=== PATIENT | male | born 1965 | race Caucasian/White ===

== ENCOUNTER 2017-01-04 09:00 | Emergency (ER) | payer BC, OTHER ==
[2017-01-04 09:55] VITALS: BP 141/94
--- NOTE | 2017-01-04 10:02 | UC ---
David Brink Matthew, scribed for Al Murphy MD on 01/04/17 at 0941 . Palpitation/Dysrhythmia HP - HPI Summary HPI Summary: A 51 y/o male presents to the ED with intermittent palpitations since 12/28. He has Hx of palpitations and wore a holter monitor at that time. However, the patient states that the "tech reviewed the results and told him that no further- work up was necessary.: The palpitations subsided until they started up again on 12/28. The symptoms worsen at night when the patient lies down and are unaffected by exertion. Hes having difficulty sleeping from the palpitations. He denies chest pain, SOB, dizziness, nausea, vomiting, and diaphoresis. The patient has 1 to 1.5 cups of coffee per day. He does not drink soda or power drinks. He does not smoke, but does drink alcohol. PMHx includes HTN. FHx of CAD and his mother had a MT at 59. - History of Current Complaint Chief Complaint: UCCardiac Stated Complaint: HEART BEATING FAST Time Seen by Provider: 01/04/17 09:01 Hx Obtained From: Patient Onset/Duration: Lasting Weeks, Still Present Timing: Intermittent Episodes Lasting: Severity Initially: Mild Severity Currently: None Aggravating Factor(s): Position - lying flat Associated Signs & Symptoms: Negative: Dizzy, Chest Pain, Shortness of Breath, Diaphoresis, Nausea, Vomiting - Allergy/Home Medications Allergies/Adverse Reactions: Allergies Allergy/AdvReac Type Severity Reaction Status Date / Time No Known Allergies Allergy Verified 02/03/16 09:39 PMH/Surg Hx/FS Hx/Imm Hx Endocrine History Of: Denies: Diabetes, Thyroid Disease Cardiovascular History Of: Reports: Hypertension - WELL CONTROLLED Denies: Cardiac Disorders Respiratory History Of: Denies: COPD, Asthma GI/ History Of: Denies: Ulcer - Surgical History Surgical History: Yes Surgery Procedure, Year, and Place: L KNEE ACL X 1. L KNEE MENISCUS X 4 - Family History Known Family History: Positive: Cardiac Disease - mother had an MT at 59 - Social History Alcohol Use: Daily Alcohol Amount: 3-4 beer Substance Use Type: None Smoking Status (MU): Current Some Day Smoker Type: Cigars Amount Used/How Often: OCC CIGAR - Immunization History Most Recent Influenza Vaccination: 2016/2016 Review of Systems Constitutional: Negative Skin: Negative Eyes: Negative ENT: Negative Respiratory: Negative Cardiovascular: Palpitations - described as an extra beat Gastrointestinal: Negative Genitourinary: Negative Motor: Negative Neurovascular: Negative Musculoskeletal: Negative Neurological: Negative Psychological: Negative All Other Systems Reviewed And Are Negative: Yes Physical Exam Triage Information Reviewed: Yes Vital Signs: Initial Vital Signs Temp 98.9 F 01/04/17 09:07 Pulse 82 01/04/17 09:07 Resp 16 01/04/17 09:07 BP 147/97 01/04/17 09:07 Pulse Ox 97 01/04/17 09:07 Vital Signs Reviewed: Yes - Additional Comments VITAL SIGNS: Reviewed. GENERAL: Patient is a well developed and nourished male who is lying comfortable in the stretcher. Patient is not in any acute respiratory distress. HEAD AND FACE: Normocephalic EYES: PERRLA, EOMI x 2. EARS: Hearing grossly intact. MOUTH: Oropharynx within normal limits. NECK: Supple, trachea is midline, no adenopathy, no JVD, no carotid bruit. CHEST: Symmetric, no tenderness at palpation LUNGS: Clear to auscultation bilaterally. No wheezing or crackles. CVS: Regular rate and rhythm, S1 and S2 present, no murmurs or gallops appreciated. ABDOMEN: Soft, non-tender. Bowel sounds are normal. No abdominal abnormal pulsations. EXTREMITIES: FROM in all major joints, no edema, no cyanosis or clubbing. NEURO: Alert and oriented x 3. No acute neurological deficits. Speech is normal and follows commands. SKIN: Dry and warm Diagnostics - EKG Cardiac Rate: NL - 81 bpm Cardiac Rhythm: Sinus: Normal - No ST elevation, no PVC, and similar to previous EKG done on 01/28/16 Palpitations Course/Dx - Course Course Of Treatment: EKG shows NSR without ST elevations expect for occasional PVCs. The patient denies chest pain, SOB, diaphoresis, or feeling like he is going to pass out. At this time, the patient is asymptomatic. He reports that in the past he has had these palpitations and had a Holter monitor at that time. However, he does not really know the result since he did not follow-up with his PCP. He denies any increased caffeine intake from usual, drug use, or power drinks. I believe that the patients symptoms are secondary to his PVCs and since the patient does not have any other complaint he will be discharged home with follow-up from PCP for possible Holter monitor and further work-up bean management. He will be referred to a PCP as he does not have one currently. He was recommended to go to the ED if he develops more palpitations, chest pain , SOB, dizziness, or near syncopal episode. He understands and agrees. He verbalized understanding. He is hemodynamically stable and A&Ox3. I discussed all the findings and test results with the patient. Patient was instructed to return to the emergency room immediately if any of the symptoms return or worsens. Plan of care was discussed with the patient and understands and agrees. All questions were answered at patient satisfaction. There were no further complaints or concerns. Lung exam before discharge: CTA B/L. Good air exchange. No wheezing or crackles heard. CVS: S1 and S2 present. No murmurs appreciated. Patient is alert and oriented x 3. Patient is hemodynamically stable. Patient will be discharged home with follow up senior administrative services officer in the next 2-3 days - Differential Dx/Diagnosis Differential Diagnosis/HQI/PQRI: Other - Arrythmia, palpitations, Provider Diagnoses: PVCs Discharge - Discharge Plan Condition: Stable Disposition: HOME Patient Education Materials: Premature Ventricular Contractions (ED) Referrals: [facility] [place] [facility] [place] [facility] [Outside] - 3 Days Additional Instructions: Please call the physician finder to make an appointment with a primary care physician. Please go to the ED if you developed more or worsening palpitations, chest pain, SOB, dizziness, or a sensation of passing out. Diagnostics - Vital Signs Vital Signs Temp Pulse Resp BP Pulse Ox 01/04/17 09:07 98.9 F 82 16 147/97 97 - Laboratory Lab Statement: Any lab studies that have been ordered have been reviewed, and results considered in the medical decision making process. - EKG 09:11 Cardiac Rate: NL - 81 bpm EKG Rhythm: Sinus Rhythm EKG Interpretation: No ST elevation, no PVC, and similar to previous EKG done on 01/28/16 EKG Comparison: No Significant Change - 01/28/16 which showed showed sinus rhythm at 76 bpm with Q waves in II, III, aVF 09:13 Cardiac Rate: NL - 81 bpm EKG Rhythm: Sinus Rhythm Ectopy: PVCs EKG Interpretation: No ST elevations EKG Comparison: No Significant Change - Previous EKG done in the at 09:10 The documentation as recorded by the David dukes Matthew accurately reflects the service I personally performed and the decisions made by me, Al Murphy MD.
== END 2017-01-04 10:00 | disposition home or self-care (01) ==
LOC: UCEAST 09:00
DX: I49.3 Ventricular premature depolarization (principal); I10 Essential (primary) hypertension; Z72.0 Tobacco use
CPT/HCPCS: 93005; 99211; G0463

== ENCOUNTER 2017-01-06 15:41 | Emergency (ER) | payer BC ==
[2017-01-06 15:50] VITALS: BP 140/95
--- NOTE | 2017-01-06 16:01 | UC ---
Palpitation/Dysrhythmia HP - History of Current Complaint Chief Complaint: UCGeneralIllness Stated Complaint: PERSONAL Time Seen by Provider: 01/06/17 15:52 Hx Obtained From: Patient Onset/Duration: Gradual Onset, Lasting Weeks - 1 Severity Initially: Mild Severity Currently: None Character: Irregular, Pounding Aggravating Factor(s): Position - lying down to go to bed. Alleviating Factor(s): Nothing Associated Signs & Symptoms: Positive: Chest Pain - left sided chest pain off and on. No chest pain now. - Risk Factors Cardiac: Hypertension Pulmonary Embolism: Negative Atrial Fibrillation: Hypertension - Allergy/Home Medications Allergies/Adverse Reactions: Allergies Allergy/AdvReac Type Severity Reaction Status Date / Time No Known Allergies Allergy Verified 01/06/17 15:50 PMH/Surg Hx/FS Hx/Imm Hx Endocrine History Of: Denies: Diabetes, Thyroid Disease Cardiovascular History Of: Reports: Hypertension - WELL CONTROLLED Denies: Cardiac Disorders Respiratory History Of: Denies: COPD, Asthma GI/ History Of: Denies: Ulcer - Surgical History Surgical History: Yes Surgery Procedure, Year, and Place: L KNEE ACL X 1. L KNEE MENISCUS X 4 - Family History Known Family History: Positive: Cardiac Disease - mother had an NH at 59, Hypertension Negative: Diabetes - Social History Occupation: Employed Full-time Lives: With Family Alcohol Use: Daily Alcohol Amount: 3-4 beer Substance Use Type: None Smoking Status (MU): Current Some Day Smoker Type: Cigars Amount Used/How Often: OCC CIGAR - Immunization History Most Recent Influenza Vaccination: 2015/2016 Review of Systems ENT: Nasal Discharge - resolving cold Respiratory: Cough Cardiovascular: Palpitations All Other Systems Reviewed And Are Negative: Yes Physical Exam Triage Information Reviewed: Yes Appearance: Well-Appearing, No Pain Distress, Well-Nourished Vital Signs: Initial Vital Signs Temp 99.3 F 01/06/17 15:47 Pulse 89 01/06/17 15:47 Resp 14 01/06/17 15:47 BP 140/95 01/06/17 15:47 Pulse Ox 95 01/06/17 15:47 Vital Signs Reviewed: Yes Eyes: Positive: Conjunctiva Inflamed - Mild bilateral ENT: Positive: Pharynx normal, TMs normal Neck exam: Normal Respiratory Exam: Normal Cardiovascular: Positive: RRR, No Murmur Musculoskeletal Exam: Normal Neurological Exam: Normal Psychological Exam: Normal Skin Exam: Normal Palpitations Course/Dx - Differential Dx/Diagnosis Differential Diagnosis/HQI/PQRI: Hypokalemia, Medication Induced, Paroxymal SVT Provider Diagnoses: Palpitations. Discharge - Discharge Plan Condition: Stable Disposition: HOME Patient Education Materials: Palpitations (ED) Additional Instructions: Make sure to stay well hydrated. Beer will dehydrate you. Exercise can be helpful Consider Melatonin to help with shift sleep disorder.
[2017-01-07 12:32] LABS: Hematocrit 49 % (42-52); Hemoglobin 16.6 g/dl (14.0-18.0); Mean Corpuscular HGB Conc 34 g/dl (31-36); Mean Corpuscular Hemoglobin 31 pg (27-31); Mean Corpuscular Volume 93 fL (80-94); Mean Platelet Volume 9 um3 (7.4-10.4); Red Blood Count 5.31 10^6/ul (4.0-5.4); Red Cell Distribution Width 13 % (10.5-15)
[2017-01-07 12:44] LABS: Albumin 4.3 g/dL (3.2-5.2); BUN/Creatinine Ratio 16.7 (8-20); Calcium 9.4 mg/dL (8.6-10.3); EGFR Non-African American 56.7 (>60); Globulin 2.7 g/dL (2-4); Potassium 3.6 mmol/L (3.5-5.0); Total Bilirubin 0.8 mg/dL (0.2-1.0)
[2017-01-07 12:53] LABS: TSH (Thyroid Stimulating Horm) 3.53 mcIU/mL (0.34-5.60)
== END 2017-01-06 16:52 | disposition home or self-care (01) ==
LOC: UCCORT 15:41
DX: R00.2 Palpitations (principal); I10 Essential (primary) hypertension; Z72.0 Tobacco use
CPT/HCPCS: 36415; 80053; 84443; 85025; 99211; G0463

== ENCOUNTER 2017-09-24 16:09 | Emergency (ER) | payer BC ==
[2017-09-24 16:24] VITALS: BP 127/80
--- NOTE | 2017-09-24 16:38 | UC ---
Abdominal Pain Male HPI - HPI Summary HPI Summary: pain in right flank that radiates around to abdomen has a stent in his ureter- he states he has an abnormal kidney/ureter - History of Current Complaint Chief Complaint: UCAbdominalPain Stated Complaint: STOMACH PAIN Time Seen by Provider: 09/24/17 16:19 Hx Obtained From: Patient Hx From Patient Unobtainable Due To: Dementia Onset/Duration: Sudden Onset, Lasting Days - 2, Still Present Timing: Constant Severity Initially: Mild Severity Currently: Mild Location: Other - right flank mid abdomen Radiates: Yes Character: Unable to describe Aggravating Factor(s): Nothing Alleviating Factor(s): Spontaneous Resolution Associated Signs And Symptoms: Positive: Negative - Allergies/Home Medications Allergies/Adverse Reactions: Allergies Allergy/AdvReac Type Severity Reaction Status Date / Time No Known Allergies Allergy Verified 09/24/17 16:24 PMH/Surg Hx/FS Hx/Imm Hx Previously Healthy: No Cardiovascular History: Hypertension GI/ History: Gastroesophageal Reflux - Surgical History Surgical History: Yes Surgery Procedure, Year, and Place: L KNEE ACL X 1. L KNEE MENISCUS X 4 - Family History Known Family History: Positive: Cardiac Disease - mother had an [place] at 59, Hypertension Negative: Diabetes - Social History Occupation: Employed Full-time Lives: With Family Alcohol Use: Weekly Alcohol Amount: 3-4 beer a week Substance Use Type: None Smoking Status (MU): Current Some Day Smoker Type: Cigars Amount Used/How Often: OCC CIGAR - Immunization History Most Recent Influenza Vaccination: unsure Review of Systems Constitutional: Negative Skin: Negative Eyes: Negative ENT: Negative Respiratory: Negative Cardiovascular: Negative Gastrointestinal: Abdominal Pain Genitourinary: Hematuria Motor: Negative Neurovascular: Negative Musculoskeletal: Negative Neurological: Negative Psychological: Negative Is Patient Immunocompromised?: No All Other Systems Reviewed And Are Negative: Yes Physical Exam Triage Information Reviewed: Yes Appearance: Well-Appearing, No Pain Distress, Well-Nourished Vital Signs: Initial Vital Signs Temp 98.7 F 09/24/17 16:19 Pulse 95 09/24/17 16:19 Resp 17 09/24/17 16:19 BP 127/80 09/24/17 16:19 Pulse Ox 98 09/24/17 16:19 Vital Signs Reviewed: Yes Eye Exam: Normal Eyes: Positive: Conjunctiva Clear ENT Exam: Normal ENT: Positive: Normal ENT inspection, Hearing grossly normal, Pharynx normal. Negative: Nasal congestion, Nasal drainage, Trismus, Muffled voice, Hoarse voice Dental Exam: Normal Neck exam: Normal Neck: Positive: Supple, Nontender Respiratory Exam: Normal Respiratory: Positive: Chest non-tender, Lungs clear, Normal breath sounds, No respiratory distress, No accessory muscle use Cardiovascular Exam: Normal Cardiovascular: Positive: RRR, Pulses Normal, Brisk Capillary Refill Abdominal Exam: Normal Abdomen Description: Positive: Nontender, No Organomegaly, Soft, CVA Tenderness (R). Negative: CVA Tenderness (L) Bowel Sounds: Positive: Present Musculoskeletal Exam: Normal Musculoskeletal: Positive: Strength Intact, ROM Intact, No Edema Neurological Exam: Normal Neurological: Positive: Alert, Muscle Tone Normal Psychological Exam: Normal Skin Exam: Normal Diagnostics - Radiology No standard instances Xray Interpretation: No Acute Changes Radiology Interpretation Completed By: Radiologist Abd Pain Male Course/Dx - Course Course Of Treatment: rest increase fluids to ed for insease in discomfort or changes follow with Dr. Mackay in 2 days - Differential Dx/Clinical Impression Provider Diagnoses: Acute abdomen pain Discharge - Discharge Plan Condition: Stable Disposition: HOME Patient Education Materials: Acute Abdominal Pain (ED) Forms: *Work Release Referrals: Chevy Mackay MD [Medical Doctor] - 2 Days
--- NOTE | 2017-09-24 17:24 | RAD ---
INDICATION: Right flank pain COMPARISON: February 03, 2011 TECHNIQUE: Noncontrast axial source images were acquired from the level hemidiaphragms to the symphysis pubis as part of CT imaging for renal stone. Lung bases: The lung bases are clear. There is pleural fluid or thickening in the major fissure on the left. Liver: The liver is normal in size. Noncontrast imaging shows no evidence of a hepatic mass or ductal dilatation. Gallbladder: There are no calcified gallstones. There is no evidence of wall thickening or pericholecystic fluid.. Spleen: The spleen is normal in size. The noncontrast CT appearance is normal. Pancreas: Noncontrast imaging shows no pancreatic mass or ductal dilitation. Adrenal glands: No masses are identified. Kidneys/Bladder: There is no evidence of nephrolithiasis or CT evidence of hydronephrosis. There is dilatation of distal right ureter, unchanged Noncontrast imaging shows no evidence of a renal mass. The kidneys have lobular contours, unchanged. There is probable right renal scarring. The bladder is unremarkable.. Adenopathy: There is no evidence of intraperitoneal or retroperitoneal adenopathy. Evaluation is limited without oral contrast. Fluid collections: There are no free or localized fluid collections. Vessels: The aorta and iliac vessels are normal in caliber. There are no significant atherosclerotic changes. The IVC appears normal Pelvic organs: The prostate and seminal vesicles appear normal GI tract: Evaluation of the bowel is limited without oral contrast. The stomach, small bowel, and lower GI tract appear grossly normal. There are no obstructive findings. The appendix is normal. Soft tissues: There are small fat-containing inguinal hernias bilaterally. Osseous structures: There are no acute osseous findings. There is chronic L5 spondylolysis with a grade 2 anterolisthesis IMPRESSION: NO CT EVIDENCE OF UROLITHIASIS. NO MASS OR INFLAMMATORY CHANGES. CHRONIC L5 SPONDYLOLYSIS WITH ASSOCIATED ANTEROLISTHESIS.
== END 2017-09-24 17:42 | disposition home or self-care (01) ==
LOC: UCCORT 16:09
DX: R10.11 Right upper quadrant pain (principal); R31.9 Hematuria, unspecified; I10 Essential (primary) hypertension; K21.9 Gastro-esophageal reflux disease without esophagitis; Z72.0 Tobacco use
CPT/HCPCS: 74176; 81003; 99211; G0463

== ENCOUNTER 2018-04-11 15:34 | Emergency (ER) | payer BC ==
[2018-04-11 15:58] VITALS: BP 135/69
--- NOTE | 2018-04-11 16:07 | UC ---
Minor Trauma HPI - HPI Summary HPI Summary: Patient fell off his sofa on April 07. Hitting the right side of his posterior ribs on a hard surface. Patient has continued pain. Has been taking ibuprofen without relief - History of Current Complaint Chief Complaint: UCGeneralIllness Stated Complaint: RIB PAIN Time Seen by Provider: 04/11/18 15:54 Hx Obtained From: Patient Onset/Duration: Sudden Onset, Lasting Days - 4, Still Present Onset Of Pain: Immediate Pain Intensity: 8 Pain Scale Used: 0-10 Numeric Mechanism Of Injury: Blunt Trauma, Direct Blow Aggravating Factor(s): Movement Alleviating Factor(s): Nothing - Allergies/Home Medications Allergies/Adverse Reactions: Allergies Allergy/AdvReac Type Severity Reaction Status Date / Time No Known Allergies Allergy Verified 04/11/18 15:56 PMH/Surg Hx/FS Hx/Imm Hx Previously Healthy: No Cardiovascular History: Hypertension GI/ History: Gastroesophageal Reflux - Surgical History Surgical History: Yes Surgery Procedure, Year, and Place: L KNEE ACL X 1. L KNEE MENISCUS X 4 - Family History Known Family History: Positive: Cardiac Disease - mother had an [place] at 59, Hypertension Negative: Diabetes - Social History Occupation: Employed Full-time Lives: With Family Alcohol Use: Rare Alcohol Amount: 3-4 beer a week Substance Use Type: None Smoking Status (MU): Current Some Day Smoker Type: Cigars Amount Used/How Often: OCC CIGAR - Immunization History Most Recent Influenza Vaccination: unsure Review of Systems Constitutional: Negative Skin: Negative Eyes: Negative ENT: Negative Respiratory: Negative Cardiovascular: Negative Gastrointestinal: Negative Genitourinary: Negative Motor: Negative Neurovascular: Negative Musculoskeletal: Arthralgia - right lower posterior ribs Neurological: Negative Psychological: Negative Is Patient Immunocompromised?: No All Other Systems Reviewed And Are Negative: Yes Physical Exam Triage Information Reviewed: Yes Appearance: Well-Appearing, No Pain Distress, Well-Nourished Vital Signs: Initial Vital Signs Temp 98.4 F 04/11/18 15:53 Pulse 71 04/11/18 15:53 Resp 21 04/11/18 15:53 BP 135/69 04/11/18 15:53 Pulse Ox 98 04/11/18 15:53 Vital Signs Reviewed: Yes Eye Exam: Normal Eyes: Positive: Conjunctiva Clear ENT Exam: Normal ENT: Positive: Normal ENT inspection, Hearing grossly normal. Negative: Nasal congestion, Trismus, Muffled voice, Hoarse voice, Sinus tenderness Neck exam: Normal Neck: Positive: Supple, Nontender, No Lymphadenopathy Respiratory Exam: Normal Respiratory: Positive: Chest non-tender, Lungs clear, Normal breath sounds, No respiratory distress, No accessory muscle use Cardiovascular Exam: Normal Cardiovascular: Positive: RRR, No Murmur, Pulses Normal, Brisk Capillary Refill Abdominal Exam: Normal Abdomen Description: Positive: Nontender. Negative: CVA Tenderness (R), CVA Tenderness (L) Musculoskeletal Exam: Normal Musculoskeletal: Positive: Strength Intact, ROM Intact, No Edema Neurological Exam: Normal Neurological: Positive: Alert, Muscle Tone Normal Psychological Exam: Normal Skin Exam: Normal Diagnostics - Laboratory Diagnostic Studies Completed/Ordered: ua-+1 blood (patient states that is his usual) - Radiology No standard instances Xray Interpretation: No Acute Changes Radiology Interpretation Completed By: ED Physician, Radiologist - Patient Name : MIKE RUEDA Medical Record#: [id number] Ordering Physician: Mary Floyd NP Acct.#: [id number] : 1965 Age: 52 Sex: M Location: [facility] Exam Date : 04/11/18 1603 ADM Status: REG ER Order Information: RIBS RT UNI W/PA CH MIN 3 VWS Accession Number: [id number] CPT: 72199 INDICATION: Right posterior rib pain after fall from a treadmill COMPARISON: None. TECHNIQUE: 4 views of the right ribs were obtained. FINDINGS: An external marker is noted over the right lateral posterior ribs. No fracture or significant focal osseous abnormality is seen. No pneumothorax is apparent. Limited views demonstrate grossly clear lungs. IMPRESSION: No radiographically apparent displaced rib fracture or pneumothorax. If the patient's symptoms persist, follow-up imaging is recommended. < Electronically signed by Delbert Pedersen MD in [place]> 04/11/181713 Dictated By: Delbert Pedersen MD Dictated Date/Time: 04/11/181713 Transcribed Date/Time: 1712 Copy to: CC:Mary Floyd [employer]ENTRAL [employer]ERILE TECH; No Primary Care Phys,NOPCP; Al Harvey MD Imaging - [facility] Imaging - [facility] Imaging - [facility] [address] [address] ph [phone]) ph [phone]) ph ([phone]) 1 of 1 Minor Trauma Course/Dx - Course Course Of Treatment: ice, ibuprofen rest follow with pcp - Differential Dx/Diagnosis Provider Diagnoses: right posterior Rib COntusion Discharge - Sign-Out/Discharge Documenting (check all that apply): Discharge/Admit/Transfer - Discharge Plan Condition: Stable Disposition: HOME Patient Education Materials: Ibuprofen (By mouth), Ice Pack Application (ED), Rib Contusion (ED) Forms: *Work Release Referrals: SABIHA Naik [Medical Doctor] - If Needed - Billing Disposition and Condition Condition: STABLE Disposition: Home
--- NOTE | 2018-04-11 17:17 | RAD ---
INDICATION: Right posterior rib pain after fall from a treadmill COMPARISON: None. TECHNIQUE: 4 views of the right ribs were obtained. FINDINGS: An external marker is noted over the right lateral posterior ribs. No fracture or significant focal osseous abnormality is seen. No pneumothorax is apparent. Limited views demonstrate grossly clear lungs. IMPRESSION: No radiographically apparent displaced rib fracture or pneumothorax. If the patient's symptoms persist, follow-up imaging is recommended.
== END 2018-04-11 17:29 | disposition home or self-care (01) ==
LOC: UCCORT 15:34
DX: S20.20XA Contusion of thorax, unspecified, initial encounter (principal); W08.XXXA Fall from other furniture, initial encounter; Y93.9 Activity, unspecified; Y92.009 Unspecified place in unspecified non-institutional (private) residence as the place of occurrence of the external cause; I10 Essential (primary) hypertension; F17.290 Nicotine dependence, other tobacco product, uncomplicated
CPT/HCPCS: 81003; 99211; G0463